=== PATIENT | female | born 1940 | race Caucasian/White ===

== ENCOUNTER 2019-03-06 10:47 | Outpatient (CLI) | payer MEDICARE, OTHER ==
[~2019-03-06] VITALS: Ht 160 cm; Wt 63.6 kg
== END 2019-03-06 23:59 | disposition home or self-care (01) ==
LOC: INFUSION 10:47
PROVIDERS: ATTEND Family Medicine
DX: M81.0 Age-related osteoporosis without current pathological fracture (principal)
CPT/HCPCS: 36415; 82310; 82565; 96365; J3489